=== PATIENT | male | born 1995 | race Caucasian/White ===

== ENCOUNTER 2017-12-12 12:09 | Emergency (ER) | payer OTHER | END 2017-12-12 14:41 | disposition home or self-care (01) | LOC: M ED 12:09 | DX: N50.9 Disorder of male genital organs, unspecified (principal) | CPT/HCPCS: 87252 ==

== ENCOUNTER 2017-12-26 08:23 | Emergency (ER) | payer OTHER | END 2017-12-26 09:18 | disposition home or self-care (01) | LOC: M ED 08:23 | DX: S40.012A Contusion of left shoulder, initial encounter (principal); X58.XXXA Exposure to other specified factors, initial encounter; Y92.84 Military training ground as the place of occurrence of the external cause; Y93.89 Activity, other specified; Y99.1 Military activity | CPT/HCPCS: 73030 ==